=== PATIENT | female | born 1990 | race Caucasian/White ===

== ENCOUNTER 2021-04-16 17:25 | Inpatient (IN) | payer OTHER ==
[~2021-04-16] VITALS: Ht 175.3 cm; Wt 122.5 kg
[2021-04-16 17:58] LABS: HEMOGLOBIN 12.4 gm/dl (12.3-15.3); RED BLOOD COUNT 4.11 M/UL (4.00-5.10)
[2021-04-16 17:59] LABS: WHITE BLOOD COUNT 30.3 K/UL (4.5-11.0)
[2021-04-16] MEDS ORDERED: PRENATAL VITAM1 EAC3 PO (20:01)
[2021-04-17 05:32] LABS: RED BLOOD COUNT 3.7 M/UL (4.00-5.10)
[2021-04-17 05:33] LABS: WHITE BLOOD COUNT 21.2 K/UL (4.5-11.0)
[2021-04-17] MEDS ORDERED: IBUPROFEN600 MG PO (15:10)
[2021-04-17] MEDS ORDERED: DOCUSATE SODIU100 MG PO (15:10)
[2021-04-18 10:10] LABS: HBSAG SCREEN Negative (Negative); HEP A AB, IGM Negative (Negative); HEP B CORE AB, IGM Negative (Negative); HEP C VIRUS AB <0.1 (0.0-0.9); RUBELLA ANTIBODIES, IGG 1.09 index (Immune >0.99)
[2021-04-19 16:11] LABS: TREPONEMA PALLIDUM ANTIBODIES Non Reactive (Non Reactive)
== END 2021-04-17 20:42 | disposition home or self-care (01) | DRG 807 ==
LOC: GENOP 17:25 → OB 17:47
PROVIDERS: Obstetrics & Gynecology; ADMIT Obstetrics & Gynecology
PROC: 10E0XZZ Delivery of Products of Conception, External Approach (ICD-10-PCS; principal; 2021-04-16)
PROC: 0KQM0ZZ Repair Perineum Muscle, Open Approach (ICD-10-PCS; 2021-04-16)
PROC: 4A1HXCZ Monitoring of Products of Conception, Cardiac Rate, External Approach (ICD-10-PCS; 2021-04-16)
PROC: 0UQMXZZ Repair Vulva, External Approach (ICD-10-PCS; 2021-04-16)
DX: O77.0 Labor and delivery complicated by meconium in amniotic fluid (principal); Z37.0 Single live birth; Z3A.49 Greater than 42 weeks gestation of pregnancy; O48.0 Post-term pregnancy; O70.1 Second degree perineal laceration during delivery; Z20.822 Contact with and (suspected) exposure to COVID-19
CPT/HCPCS: 36415; 80074; 80307; 81001; 82800; 85025; 86762; 86780; 86900; 86901; J2590; J7120